=== PATIENT | male | born 1945 | race Caucasian/White ===

== ENCOUNTER 2025-05-27 15:33 | Observation (INO) | payer MEDICARE, OTHER ==
[2025-05-27] MEDS ORDERED: Ondansetron 4 MG/2 ML SDV IV PRN (16:59)
[2025-05-27] MEDS ORDERED: Ondansetron 4 MG Tab.DIS PO PRN (16:59)
[2025-05-27] MEDS: Furosemide 40 MG/4 ML VIAL IVPUSH SCH (18:25)
[2025-05-27] MEDS: Furosemide 40 MG/4 ML VIAL IVPUSH ONE (22:06)
[2025-05-28] MEDS: Cyanocobalamin (Vitamin B12) 1,000 MCG Tab PO SCH (07:47)
[2025-05-28] MEDS: Potassium Chloride 20 MEQ Tab.ER PO SCH (07:48)
[2025-05-28] MEDS: Multivitamins with Iron/Calcium/Folic Acid/Minerals Tab PO SCH (07:48)
[2025-05-28 07:50] LABS: BASOPHILS ABSOLUTE AUTO 0.02 10^3/uL (0.00-0.50); BASOPHILS PERCENT AUTO 0.1 % (0-1); EOSINOPHILS ABSOLUTE AUTO 0.11 10^3/uL (0.00-1.50); EOSINOPHILS PERCENT AUTO 0.7 % (0-6); IMMATURE GRAN ABSOLUTE AUTO 0.10 10^3/uL (0.00-0.49); IMMATURE GRAN PERCENT AUTO 0.7 % (0.0-4.9); LYMPHOCYTES ABSOLUTE AUTO 2.76 10^3/uL (0.60-5.00); LYMPHOCYTES PERCENT AUTO 18.0 % (24-44); MONOCYTES ABSOLUTE AUTO 1.07 10^3/uL (0.00-1.50); MONOCYTES PERCENT AUTO 7.0 % (0-10); NEUTROPHILS ABSOLUTE AUTO 11.28 x10^3/uL (1.80-8.00); NEUTROPHILS PERCENT AUTO 73.5 % (41-71); PLATELET COUNT,PLT 378 10^3/uL (150-400); RED BLOOD CELL COUNT 4.37 x10^6/uL (4.50-6.00); WHITE BLOOD CELL COUNT,WBC 15.3 10^3/uL (4.0-11.0)
[2025-05-28] MEDS: Metoprolol Succinate 100 MG Tab.ER PO SCH (07:55)
[2025-05-28 09:45] LABS: ALANINE AMINOTRANSFERASE,ALT 22.0 U/L (12-78); ASPARTATE AMNIOTRANSFERASE,AST 16.0 U/L (15-37); BILIRUBIN TOTAL 0.7 mg/dL (0.0-1.0); BLOOD UREA NITROGEN,BUN 37.0 mg/dL (7-18); CARBON DIOXIDE,CO2 27.0 mmol/L (21-32); CHLORIDE,CL 104.0 mEq/L (98-106); CREATININE 1.7 mg/dL (0.7-1.3); EST CRCL DRUG DOSING (CG) 34.09 mL/min; GLUCOSE RANDOM 85.0 mg/dL (75-99); POTASSIUM,K 3.2 mEq/L (3.5-5.0); PROTEIN TOTAL,TP 6.0 g/dL (6.4-8.2); SODIUM,NA 141.0 mEq/L (136-145)
[2025-05-28 09:46] LABS: ESTIMATED GFR 41.0 mL/min (>=60)
[2025-05-28] MEDS: VILANTER PO SCH (10:13)
[2025-05-28] MEDS: VALSARTAN PO SCH (10:13)
[2025-05-28] MEDS: SACUBITRIL PO SCH (10:13)
[2025-05-28] MEDS: UMECLIDIN PO SCH (10:13)
[2025-05-28] MEDS: FLUTICASONE PO SCH (10:13)
[2025-05-28] MEDS: Potassium Chloride 20 MEQ Tab.ER PO ONE (13:18)
[2025-05-28] MEDS ORDERED: EPLERENONE 25 MG PO SCH (20:00)
== END 2025-05-28 15:30 | disposition home or self-care (01) ==
LOC: UNDOADMOB 15:33 → CC.MS 15:33
PROVIDERS: ADMIT Nurse Practitioner Family; ATTEND Nurse Practitioner Family
DX: I50.33 Acute on chronic diastolic (congestive) heart failure (principal); I82.409 Acute embolism and thrombosis of unspecified deep veins of unspecified lower extremity; Z88.2 Allergy status to sulfonamides; Z79.01 Long term (current) use of anticoagulants; Z91.013 Allergy to seafood; Z79.899 Other long term (current) drug therapy
CPT/HCPCS: 36415; 80053; 85025; 99223; 99238; A9270-GY; J1938; J7512

== ENCOUNTER 2025-07-21 15:32 | Emergency (ER) | payer MEDICARE, OTHER ==
[2025-07-21 16:17] LABS: BASOPHILS ABSOLUTE AUTO 0.05 10^3/uL (0.00-0.50); BASOPHILS PERCENT AUTO 0.3 % (0-1); EOSINOPHILS ABSOLUTE AUTO 0.19 10^3/uL (0.00-1.50); EOSINOPHILS PERCENT AUTO 1.3 % (0-6); IMMATURE GRAN ABSOLUTE AUTO 0.04 10^3/uL (0.00-0.49); IMMATURE GRAN PERCENT AUTO 0.3 % (0.0-4.9); LYMPHOCYTES ABSOLUTE AUTO 1.99 10^3/uL (0.60-5.00); LYMPHOCYTES PERCENT AUTO 13.5 % (24-44); MONOCYTES ABSOLUTE AUTO 1.34 10^3/uL (0.00-1.50); MONOCYTES PERCENT AUTO 9.1 % (0-10); NEUTROPHILS ABSOLUTE AUTO 11.12 x10^3/uL (1.80-8.00); NEUTROPHILS PERCENT AUTO 75.5 % (41-71); PLATELET COUNT,PLT 288 10^3/uL (150-400); RED BLOOD CELL COUNT 3.52 x10^6/uL (4.50-6.00); WHITE BLOOD CELL COUNT,WBC 14.7 10^3/uL (4.0-11.0)
[2025-07-21 16:31] LABS: INR 1.17 (0.92-1.18); PTT,PARTIAL THROMBOPLSTIN TIME 25.0 SEC (20.0-30.0)
[2025-07-21] MEDS: Metoprolol Tartrate 5 MG/5 ML SDV IVPUSH ONE ×2 (16:36→18:39)
[2025-07-21 16:39] LABS: ALANINE AMINOTRANSFERASE,ALT 23.0 U/L (12-78); ASPARTATE AMNIOTRANSFERASE,AST 11.0 U/L (15-37); BILIRUBIN TOTAL 0.4 mg/dL (0.0-1.0); BLOOD UREA NITROGEN,BUN 51.0 mg/dL (7-18); CARBON DIOXIDE,CO2 28.0 mmol/L (21-32); CHLORIDE,CL 105.0 mEq/L (98-106); CREATININE 2.1 mg/dL (0.7-1.3); EST CRCL DRUG DOSING (CG) 27.14 mL/min; GLUCOSE RANDOM 101.0 mg/dL (75-99); POTASSIUM,K 3.7 mEq/L (3.5-5.0); PRO B-TYPE NATRIUR PEPT,BNPPRO 16215.0 pg/mL (0-1000); PROTEIN TOTAL,TP 5.7 g/dL (6.4-8.2); SODIUM,NA 141.0 mEq/L (136-145)
[2025-07-21 16:43] LABS: ESTIMATED GFR 31.0 mL/min (>=60)
[2025-07-21] MEDS: Diltiazem 100 MG in Sodium Chloride 0.9% 100 ML IV SCH (20:13)
== END 2025-07-21 21:45 ==
LOC: CC.ED 15:32
DX: I50.33 Acute on chronic diastolic (congestive) heart failure (principal); N18.32 Chronic kidney disease, stage 3b; N17.9 Acute kidney failure, unspecified; I48.91 Unspecified atrial fibrillation; R79.89 Other specified abnormal findings of blood chemistry; Z88.2 Allergy status to sulfonamides; Z91.013 Allergy to seafood; Z91.041 Radiographic dye allergy status; Z79.82 Long term (current) use of aspirin; Z79.899 Other long term (current) drug therapy; Z87.891 Personal history of nicotine dependence
CPT/HCPCS: 36415; 71046; 80053; 83735; 83880; 84484; 85025; 85610; 85730; 93005; 93010; 96365; 96375; 96376; 99284; 99285-25; J3490

== ENCOUNTER 2025-08-08 09:29 | Emergency (ER) | payer MEDICARE, OTHER ==
[2025-08-08] MEDS: Metoprolol Tartrate 5 MG/5 ML SDV IVPUSH ONE ×3 (09:51→11:54)
[2025-08-08] MEDS: methylPREDNISolone Sodium Succinate 125 MG/2 ML SDV IVPUSH STA (09:55)
[2025-08-08 09:57] LABS: BASOPHILS ABSOLUTE AUTO 0.12 10^3/uL (0.00-0.50); BASOPHILS PERCENT AUTO 0.5 % (0-1); EOSINOPHILS ABSOLUTE AUTO 0.45 10^3/uL (0.00-1.50); EOSINOPHILS PERCENT AUTO 1.9 % (0-6); IMMATURE GRAN ABSOLUTE AUTO 0.12 10^3/uL (0.00-0.49); IMMATURE GRAN PERCENT AUTO 0.5 % (0.0-4.9); LYMPHOCYTES ABSOLUTE AUTO 3.60 10^3/uL (0.60-5.00); LYMPHOCYTES PERCENT AUTO 15.4 % (24-44); MONOCYTES ABSOLUTE AUTO 1.69 10^3/uL (0.00-1.50); MONOCYTES PERCENT AUTO 7.2 % (0-10); NEUTROPHILS ABSOLUTE AUTO 17.42 x10^3/uL (1.80-8.00); NEUTROPHILS PERCENT AUTO 74.5 % (41-71); PLATELET COUNT,PLT 398 10^3/uL (150-400); RED BLOOD CELL COUNT 3.87 x10^6/uL (4.50-6.00)
[2025-08-08 09:58] LABS: WHITE BLOOD CELL COUNT,WBC 23.4 10^3/uL (4.0-11.0)
[2025-08-08 10:18] LABS: ALANINE AMINOTRANSFERASE,ALT 28.0 U/L (12-78); ASPARTATE AMNIOTRANSFERASE,AST 14.0 U/L (15-37); BILIRUBIN TOTAL 0.9 mg/dL (0.0-1.0); BLOOD UREA NITROGEN,BUN 46.0 mg/dL (7-18); CARBON DIOXIDE,CO2 23.0 mmol/L (21-32); CHLORIDE,CL 103.0 mEq/L (98-106); EST CRCL DRUG DOSING (CG) 21.92 mL/min; GLUCOSE RANDOM 163.0 mg/dL (75-99); POTASSIUM,K 3.7 mEq/L (3.5-5.0); PRO B-TYPE NATRIUR PEPT,BNPPRO 23487.0 pg/mL (0-1000); PROTEIN TOTAL,TP 6.7 g/dL (6.4-8.2); SODIUM,NA 142.0 mEq/L (136-145)
[2025-08-08 10:20] LABS: CREATININE 2.6 mg/dL (0.7-1.3); ESTIMATED GFR 24.0 mL/min (>=60)
[2025-08-08] MEDS: Bumetanide 2.5 MG/10 ML MDV IVPUSH ONE (10:32)
[2025-08-08 11:18] LABS: APPEARANCE,URINE CLEAR (CLEAR); GLUCOSE,URINE 100 mg/dL (NEGATIVE); OCCULT BLOOD,URINE NEGATIVE (NEGATIVE)
[2025-08-08 11:26] LABS: EPITHELIAL CELLS,URINE OCCASIONAL /HPF (NOT SEEN)
== END 2025-08-08 12:50 ==
LOC: CC.ED 09:29
DX: J96.11 Chronic respiratory failure with hypoxia (principal); D72.828 Other elevated white blood cell count; E87.20 Acidosis, unspecified; R79.89 Other specified abnormal findings of blood chemistry; N17.9 Acute kidney failure, unspecified; I50.9 Heart failure, unspecified; N18.32 Chronic kidney disease, stage 3b; I25.10 Atherosclerotic heart disease of native coronary artery without angina pectoris; I48.91 Unspecified atrial fibrillation; J44.9 Chronic obstructive pulmonary disease, unspecified; I25.2 Old myocardial infarction; Z79.01 Long term (current) use of anticoagulants; Z79.82 Long term (current) use of aspirin; Z79.899 Other long term (current) drug therapy; Z88.2 Allergy status to sulfonamides; Z91.013 Allergy to seafood; Z91.041 Radiographic dye allergy status
CPT/HCPCS: 36415; 71045; 80053; 81001; 83605; 83735; 83880; 84484; 85025; 85730; 86140; 87040; 87426-QW; 93005; 93010; 94640; 96365; 96375; 96376; 99284; 99291-25; A9270-GY; J0283; J1939; J2270; J2543; J2919; J3490